=== PATIENT | female | born 1985 | race African-American/Black ===

== ENCOUNTER 2017-01-30 14:16 | Emergency (ER) | payer OTHER ==
[~2017-01-30] VITALS: Ht 165.1 cm; Wt 65.8 kg
[2017-01-30] MEDS ORDERED: PERCOCET 10-321 EACH PO (14:26)
[2017-01-30] MEDS ORDERED: MOBIC7.5 MG PO (15:37)
[2017-01-30] MEDS ORDERED: CLEOCIN HCL150 MG PO (15:37)
[2017-01-30 15:59] VITALS: BP 113/85
== END 2017-01-30 15:59 | disposition home or self-care (01) ==
LOC: ER 14:16
DX: S61.101A Unspecified open wound of right thumb with damage to nail, initial encounter (principal); L03.011 Cellulitis of right finger; Z96.641 Presence of right artificial hip joint; Z88.0 Allergy status to penicillin; X50.9XXA Other and unspecified overexertion or strenuous movements or postures, initial encounter; Y93.89 Activity, other specified; Y92.89 Other specified places as the place of occurrence of the external cause; Y99.8 Other external cause status

== ENCOUNTER 2018-12-30 20:29 | Emergency (ER) | payer OTHER ==
[~2018-12-30] VITALS: Ht 165.1 cm; Wt 63.5 kg
[~2018-12-30 20:29] MED LIST: CLEOCIN HCL150 MG PO; MOBIC7.5 MG PO; PERCOCET 10-321 EACH PO
[2018-12-30] MEDS ORDERED: NAPROSYN500 MG PO (21:39)
[2018-12-30] MEDS ORDERED: FLEXERIL PO (21:39)
[2018-12-30] MEDS ORDERED: NORCO 5-325 TA1 EAC1 PO (21:39)
[2018-12-30] MEDS ORDERED: SENNA-DOCUSATE1 EAC1 PO (21:42)
[2018-12-30 22:22] VITALS: BP 110/82
== END 2018-12-30 22:22 | disposition home or self-care (01) ==
LOC: ER 20:29
DX: S39.012A Strain of muscle, fascia and tendon of lower back, initial encounter (principal); S29.012A Strain of muscle and tendon of back wall of thorax, initial encounter; S00.83XA Contusion of other part of head, initial encounter; M54.2 Cervicalgia; M25.551 Pain in right hip; Z96.641 Presence of right artificial hip joint; Z88.0 Allergy status to penicillin; V89.2XXA Person injured in unspecified motor-vehicle accident, traffic, initial encounter; Y93.89 Activity, other specified; Y92.89 Other specified places as the place of occurrence of the external cause; Y99.8 Other external cause status

== ENCOUNTER 2019-01-03 10:35 | Emergency (ER) | payer OTHER ==
[~2019-01-03] VITALS: Ht 165.1 cm; Wt 62.6 kg
[~2019-01-03 10:35] MED LIST changes: +FLEXERIL PO; +NAPROSYN500 MG PO; +NORCO 5-325 TA1 EAC1 PO; +SENNA-DOCUSATE1 EAC1 PO
[2019-01-03] MEDS ORDERED: DOXYCYCLINE 10100 MG PO (10:49)
[2019-01-03 11:01] LABS: URINE BILIRUBIN NEGATIVE (Negative); URINE BLOOD 2+ (Negative); URINE CLARITY HAZY; URINE COLOR YELLOW; URINE GLUCOSE-RANDOM* NEGATIVE (Negative); URINE KETONES NEGATIVE (Negative); URINE LEUKOCYTES 1+ (Negative); URINE NITRITE NEGATIVE (Negative); URINE PROTEIN (DIPSTICK) 1+ (Negative); URINE SPECIFIC GRAVITY >= 1.030 (1.005-1.035); URINE UROBILINOGEN 0.2 E.U./dl (0.2-1.0)
[2019-01-03 11:08] LABS: BACTERIA >30 Many /HPF (None Seen); CASTS None Seen /LPF (None Seen); SQUAMOUS 0-3 Few /LPF (0-3)
[2019-01-03 11:09] LABS: CRYSTALS None Seen /LPF (None Seen)
[2019-01-03 11:13] LABS: CREATININE 0.9 mg/dL (0.6-1.0); POTASSIUM 3.7 mmol/L (3.5-5.1)
[2019-01-03 11:19] LABS: ALBUMIN 3.4 g/dL (3.4-5.0); DIRECT BILIRUBIN 0.2 mg/dL (<0.1-0.3); TOTAL BILIRUBIN 0.9 mg/dL (<0.1-1.0); TOTAL PROTEIN 7.6 g/dL (6.4-8.2)
[2019-01-03 11:23] LABS: PROTIME 10.5 Seconds (9.3-11.4)
[2019-01-03 11:40] LABS: ABSOLUTE NEUTROPHILS 12.8 thou/uL (1.4-8.2); BASOPHILS 0.2 % (0.0-2.0); EOSINOPHILS 1.1 % (0.0-3.0); HEMATOCRIT 40.1 % (37.0-47.0); HEMOGLOBIN 13.9 gm/dL (12.0-15.0); LYMPHOCYTES 10.4 % (24.0-44.0); MCH 28.9 pg (26.0-34.0); MCHC 34.7 g/dL (28.0-37.0); MCV 83.3 fL (80.0-100.0); MONOCYTES 4.1 % (1.0-8.0); POLYS 84.2 % (36.0-66.0); RBC 4.82 mil/uL (4.20-5.00); RDW 14.4 % (10.5-14.5); WBC 15.2 thou/uL (4.0-11.0)
[2019-01-03 11:58] LABS: LARGE PLATELETS RARE; PLATELET COUNT 161 thou/uL (150-400)
[2019-01-03] MEDS ORDERED: BACTRIM DS TAB1 EACH PO (13:18)
[2019-01-03 13:23] VITALS: BP 112/80
== END 2019-01-03 13:23 | disposition home or self-care (01) ==
LOC: ER 10:35
PROVIDERS: Emergency Medicine; Nurse Practitioner
DX: N30.01 Acute cystitis with hematuria (principal); Z88.0 Allergy status to penicillin; Z90.10 Acquired absence of unspecified breast and nipple; Z96.641 Presence of right artificial hip joint

== ENCOUNTER 2019-11-29 08:16 | Emergency (ER) | payer OTHER ==
[~2019-11-29] VITALS: Ht 165.1 cm; Wt 77.1 kg
[~2019-11-29 08:16] MED LIST changes: +BACTRIM DS TAB1 EACH PO; +DOXYCYCLINE 10100 MG PO
[2019-11-29] MEDS ORDERED: ENBRACE HR SOF1 EACH PO (08:42)
[2019-11-29] MEDS ORDERED: NORCO 5-325 TA1 EAC2 PO (09:52)
[2019-11-29] MEDS ORDERED: CYCLOBENZAPRINE5 MG PO (09:52)
[2019-11-29 10:05] VITALS: BP 105/61
== END 2019-11-29 10:05 | disposition home or self-care (01) ==
LOC: ER 08:16
DX: O26.892 Other specified pregnancy related conditions, second trimester (principal); M54.42 Lumbago with sciatica, left side; Z3A.27 27 weeks gestation of pregnancy; Z96.641 Presence of right artificial hip joint; Z79.899 Other long term (current) drug therapy; Z88.0 Allergy status to penicillin